=== PATIENT | female | born 1985 | race Two or more races ===

== ENCOUNTER 2021-07-25 18:40 | Inpatient (IN) | payer OTHER ==
[~2021-07-25] VITALS: Ht 170.2 cm; Wt 90.3 kg
== END 2021-07-28 13:07 | disposition home or self-care (01) | DRG 812 ==
LOC: ER 18:40 → MEDJ 07-26 11:25 → SEC-K 07-26 13:55 → MEDJ 07-26 16:10
PROVIDERS: ADMIT Internal Medicine; ATTEND Internal Medicine
PROC: 30233N1 Transfusion of Nonautologous Red Blood Cells into Peripheral Vein, Percutaneous Approach (ICD-10-PCS; principal; 2021-07-26)
PROC: BW21ZZZ Computerized Tomography (CT Scan) of Abdomen and Pelvis (ICD-10-PCS; 2021-07-26)
DX: D64.9 Anemia, unspecified (principal); E66.8 Other obesity; N83.8 Other noninflammatory disorders of ovary, fallopian tube and broad ligament; Z20.822 Contact with and (suspected) exposure to COVID-19

== ENCOUNTER 2022-02-22 17:37 | Emergency (ER) | payer OTHER ==
[~2022-02-22] VITALS: Ht 170.2 cm; Wt 97.1 kg
[2022-02-22] MEDS ORDERED: MEDROXYPROGESTE10 MG PO (21:46)
== END 2022-02-22 23:34 | disposition home or self-care (01) ==
LOC: ER 17:37
DX: N92.1 Excessive and frequent menstruation with irregular cycle (principal); N83.201 Unspecified ovarian cyst, right side

== ENCOUNTER 2022-08-19 21:03 | Inpatient (IN) | payer OTHER ==
[~2022-08-19] VITALS: Ht 170.2 cm; Wt 96.6 kg
[~2022-08-19 21:03] MED LIST: MEDROXYPROGESTE10 MG PO
== END 2022-08-21 13:40 | disposition home or self-care (01) | DRG 812 ==
LOC: ER 21:03 → MEDI 08-20 10:41
PROVIDERS: ADMIT Internal Medicine; ATTEND Internal Medicine
PROC: 30233N1 Transfusion of Nonautologous Red Blood Cells into Peripheral Vein, Percutaneous Approach (ICD-10-PCS; principal; 2022-08-20)
DX: D50.0 Iron deficiency anemia secondary to blood loss (chronic) (principal); N92.1 Excessive and frequent menstruation with irregular cycle; Z20.822 Contact with and (suspected) exposure to COVID-19

== ENCOUNTER 2022-10-09 22:11 | Emergency (ER) | payer OTHER ==
[~2022-10-09] VITALS: Ht 170.2 cm; Wt 99.8 kg
[2022-10-10] MEDS ORDERED: PHENAGIL CH TA1 EACH PO (07:02)
[2022-10-10] MEDS ORDERED: KETO10TA2 PO (07:02)
[2022-10-10] MEDS ORDERED: INTEGRA PLUS C1 EACH PO (07:02)
== END 2022-10-10 07:34 ==
LOC: ER 22:11
DX: N93.9 Abnormal uterine and vaginal bleeding, unspecified (principal); J45.909 Unspecified asthma, uncomplicated; Z20.822 Contact with and (suspected) exposure to COVID-19

== ENCOUNTER 2022-12-06 00:38 | Emergency (ER) | payer OTHER ==
[~2022-12-06] VITALS: Ht 160 cm; Wt 85.3 kg
[~2022-12-06 00:38] MED LIST changes: +INTEGRA PLUS C1 EACH PO; +KETO10TA2 PO; +PHENAGIL CH TA1 EACH PO
== END 2022-12-06 04:39 | disposition left against medical advice (07) ==
LOC: ER 00:38
DX: R42 Dizziness and giddiness (principal); D64.9 Anemia, unspecified; R53.81 Other malaise

== ENCOUNTER → 2023-03-30 | Emergency (ER) | payer OTHER ==
[~2023-03-30] VITALS: Ht 170.2 cm; Wt 90.7 kg
== END | disposition home or self-care (01) ==
LOC: ER 18:13
DX: J06.9 Acute upper respiratory infection, unspecified (principal)

== ENCOUNTER 2023-04-07 19:42 | Inpatient (IN) | payer OTHER ==
[~2023-04-07] VITALS: Ht 170.2 cm; Wt 90.7 kg
--- NOTE | 2023-04-07 20:25 | NUR ---
PTE ALERTA Y ORIENTADA X3, REFIERE QUE LLEVA EN ANDERSON 18 DUENAS, AL MOMENTO DE TRIAGE PTE CON SANGRADO ACTIVO Y COAGULOS. PTE REFIERE CANSANCIO, SUENO Y REFIERE MAREOS. DR. THORNTON EVALUA A PTE EN AREA DE TRIAGE E INDICA UBICAR A PTE EN AREA DE FAST TRACK.
--- NOTE | 2023-04-07 20:43 | NUR ---
FEMINA EVALUADA POR DR THORNTON. SE EDUCA A PTE SOBRE TX. SE COLECTAN MUESTRAS DE RAJNI BAJO MEDIDAS ASEPTICAS Y SE NOTIFICA SONOGRAMA.
--- NOTE | 2023-04-07 21:57 | NUR ---
SE CANALIZA A PTE BAJO MEDIDAS ASEPTICAS, SE ADMINISTRA MEDICAMENTO BETTINA ORDEN Y SE COLOCA TERAPIA DE IV FLUIDS. SE COLECTAN TUBOS SUZANNA PARA REQUISICION DE 3 UNIDADES COMPLETAS DE PRBC PARA TRANSFUNDIR. SE LLAMA A BANCO DE RAJNI DE [employer] Y SE NOTIFICA A MS ANTONIETA QUE LA REQUISICION FUE LLEVADA A LABORATORIO. SE COLOCAN DOCUMENTOS EN RECORD DE PTE.
--- NOTE | 2023-04-07 23:32 | NUR ---
SE RECIBE PTE FEMENINA DE 38 ANOS ALERTA Y ORIENTADA X3 QUIEN AL MOMENTO NO REFIERE DOLOR PTE AL MOMENTO SE OBSERBA EN DESCANSO ABSOLUTO EN CAMA Y RECIBE INFUCION DE 0.9% NSS A 100MLHRA PTE SE OBSERBA CON 2 CANALIZACIONES EN MANO IZQUIERDA PATENTE Y HERBER DE EDEMA Y ERITEMA. PTE SE MANTIENE BAJO OBSERBACION POR CAMBIO EN JAMISON CONDICION.
--- NOTE | 2023-04-07 23:35 | NUR ---
SE LLAMA A BANCO DE RAJNI PARA VERIFICAR STATUS DE UNIDADES REQUIZADAS A PTE. MR LISA DE BANCO INDICA QUE LAS MISMAS SE ENCUENTRAN EN PROCESO
--- NOTE | 2023-04-08 08:32 | NUR ---
SE RECIBE PTE ALERTA ORIENTADA X3 EN ERENDIRA CON BARANAS ELEVADAS POR JAMISON SEGURIDAD.VENOPUNCION PATENTE HERBER DE EDEMA Y ERITEMA RECIBIENDO PRIMERA UNIDAD DE PRBC BAJANDO Y 0.9 NSS BAJANDO A 120ML/HR.PENDIENTE CONSULTA MEDICA CON DRA.HERNANDEZ OLSEN Y 2 UNIDADES DE PRBC YA REQUIZADAS.
== END 2023-04-10 22:50 | disposition designated cancer center or children's hospital (05) | DRG 812 ==
LOC: ER 19:42 → OB/GYN 04-08 14:21 → SEC-K 04-08 14:21 → OB/GYN 04-08 16:24
PROVIDERS: General Practice; Obstetrics & Gynecology; ADMIT Surgery; ATTEND Surgery
PROC: BU4CZZZ Ultrasonography of Uterus and Ovaries (ICD-10-PCS; 2023-04-07)
PROC: 30233N1 Transfusion of Nonautologous Red Blood Cells into Peripheral Vein, Percutaneous Approach (ICD-10-PCS; principal; 2023-04-08)
DX: D50.0 Iron deficiency anemia secondary to blood loss (chronic) (principal); N93.8 Other specified abnormal uterine and vaginal bleeding; N92.1 Excessive and frequent menstruation with irregular cycle; Z20.822 Contact with and (suspected) exposure to COVID-19